=== PATIENT | female | born 2000 | race Caucasian/White ===

== ENCOUNTER 2023-08-20 09:23 | Day surgery (SDC) | payer MEDICAID ==
[2023-08-17 12:07] VITALS: BMI 38.0
--- NOTE | 2023-08-19 19:23 | HP ---
HISTORY AND PHYSICAL CHIEF COMPLAINT: Recurrent tonsillitis. HISTORY OF PRESENT ILLNESS: The patient is a pleasant 23-year-old female, who was recently seen in my office for evaluation of recurrent episodes of acute tonsillitis despite treatment with various types of oral antibiotics. The patient states that she has had at least 4 episodes of streptococcal tonsillitis every year. She is a nonsmoker. At that time the patient was seen in my office, clinical examination of the oropharynx revealed 4+ cryptic tonsils filled with white cheesy debris. It was recommended that the patient undergo a tonsillectomy. PAST MEDICAL HISTORY: Reveals the patient is a nonsmoker. She has no allergies to medication. She is not currently on any medications. Her only previous surgery was extraction of a wisdom tooth. REVIEW OF SYSTEMS: Noncontributory. PHYSICAL EXAMINATION: GENERAL: The patient is a pleasant 23-year-old female, who was alert and cooperative. HEENT: The patient is normocephalic. Tympanic membranes are normal. Middle ear spaces are free of any fluid or infection. Pupils are equal, round, and reactive to light and accommodation. Extraocular movements are within normal limits. Intranasal examination reveals moderate septal deviation with compensatory hypertrophy of the inferior turbinates and a moderate amount of mucus on the mucous membranes and draining down the posterior pharynx. Examination of the oropharynx reveals 4+ cryptic tonsils filled with white cheesy debris. Cranial nerves 2 through 12 and remainder of the head and neck exam are within normal limits. CHEST/CARDIOVASCULAR: Both lung kirk are clear to percussion and auscultation. The patient is in regular sinus rhythm. S1 and S2 are present without any murmurs. ABDOMEN: No evidence any masses, megaly, or tenderness. The abdomen is soft. SKIN: Unremarkable. MUSCULOSKELETAL/NEUROLOGICAL: All within normal limits. PELVIC/RECTAL: This exam is deferred because the patient has done this at her family physician's office. Remainder of physical exam is unremarkable. ASSESSMENT: Chronic tonsillitis. PLAN: The patient is scheduled to undergo a tonsillectomy under general anesthesia in a.m. Attention, RNs in the pre-surgical area; I have ordered for this patient to receive 1000 mg of Ofirmev IV to be given once an intravenous line has been established. In addition to this, I have ordered for her to receive 2 million units of aqueous penicillin G IV once an IV line has been established. If the pharmacy department sends a different pre-surgical prophylactic antibiotics to the pre-surgical area for this patient, please cancel that order and return it to the pharmacy department. Please make sure that the patient's account is credited appropriately. I have discussed the risks, benefits and alternative therapies for the above-mentioned procedure and for both sedation/analgesia as well as necessary blood product administration, if indicated, as they pertain to this patient. The patient has indicated her understanding and acceptance of the risks and procedures discussed. MMODL / IJN: [id number] /
[~2023-08-20 09:23] MED LIST: ACETAMINOPHEN IV (For NPO) 1,000 MG in EMPTY BAG 1 BAG IVPB PRN; Pre Op ABX Message 1 EACH MISC MISCELLANE ONE
[2023-08-20] MEDS: LACTATED RINGERS 1,000 ML IV ONE ×2 (09:57→13:19)
[2023-08-20] MEDS: DEXAMETHASONE SOD PHOSPHATE 4 MG/ML 1 ML VIAL IVP ONE (10:25)
[2023-08-20] MEDS: ONDANSETRON 4 MG/2 ML VIAL IVP PRN (10:25)
[2023-08-20] MEDS: ACETAMINOPHEN IV (For NPO) 1,000 MG/100 ML VIAL IVPB ONE (10:26)
[2023-08-20] MEDS ORDERED: LACTATED RINGERS 1,000 ML IV SCH ×3 (11:30→11:41)
[2023-08-20] MEDS: BUPIVACAINE (PF) 0.5% 30 ML VIAL SQ ONE ×2 (11:37)
[2023-08-20] MEDS ORDERED: DEXAMETHASONE SOD PHOSPHATE 10 MG/ML 1 ML VIAL ONE (11:39)
[2023-08-20] MEDS: PENICILLIN G POTASSIUM 2,000,000 UNIT in DEXTROSE 5% IN WATER 100 ML IVPB PRN (11:39)
[2023-08-20] MEDS ORDERED: LIDOCAINE 1% INJ 10MG/ML (20 ML MDV) ONE (11:39)
[2023-08-20] MEDS ORDERED: fentaNYL (PF) 50 MCG/ML 2 ML AMP ONE (11:39)
[2023-08-20] MEDS ORDERED: MIDAZOLAM 2 MG/2 ML VIAL ONE (11:39)
[2023-08-20] MEDS ORDERED: SUCCINYLCHOLINE CHLORIDE 200 MG/10 ML VIAL IV ONE (11:39)
[2023-08-20] MEDS ORDERED: ROCURONIUM 10 MG/ML (5 ML VIAL) IV ONE (11:39)
[2023-08-20] MEDS ORDERED: GLYCOPYRROLATE 0.2 MG/ML 2 ML VIAL ONE (11:39)
[2023-08-20] MEDS ORDERED: PROPOFOL 10 MG/ML 20 ML VIAL IV ONE (11:39)
[2023-08-20] MEDS ORDERED: NEOSTIGMINE 1 MG/ML 10 ML VIAL ONE (11:39)
[2023-08-20 12:55] VITALS: TEMP 97.2
[2023-08-20] MEDS: HYDROmorphone 0.5 MG/0.5 ML SYRINGE IVP PRN (13:19)
[2023-08-20 14:13] VITALS: RESP 16
[2023-08-20] MEDS: oxyCODONE-APAP 10-325MG 1 EACH TAB PO PRN (14:24)
[2023-08-20] MEDS: ONDANSETRON 4 MG/2 ML VIAL IVP ONE (14:53)
[2023-08-20 15:34] VITALS: BP 120/82; PULSE 86
--- NOTE | 2023-08-20 20:00 | OP ---
OPERATIVE REPORT DATE OF SERVICE : 08/20/2023 PREOPERATIVE DIAGNOSIS: Chronic tonsillitis. POSTOPERATIVE DIAGNOSIS: Chronic tonsillitis. ANESTHESIA: General. PROCEDURE: Tonsillectomy. COMPLICATIONS: None. ESTIMATED BLOOD LOSS: Less than 50 mL. OPERATIVE PROCEDURE: The patient was placed on the Operating Table in the supine position, after uneventful induction and endotracheal intubation, satisfactory general anesthesia was obtained. Next, the #3 Steffi-Boston mouth gag was introduced into the oropharynx, expanded and suspended from a Thorpe Stand. Following this, both peritonsillar areas were injected with the tonsillar forceps and pulled medially. The sickle knife was used to make an incision 4 mm lateral to the anterior pillar, beginning at the superior pole and working down to the inferior pole with a similar incision being carried out parallel to the posterior pillar. The angle scissors and the serrated Bella dissector were used to dissect the tonsil away from the tonsillar fossa. The tonsil itself was excised en toto using the tonsillar snare. Hemostasis was obtained using suction cautery. A sponge was placed in the empty tonsillar fossa. Attention was then directed to the left tonsil where the same procedure was carried out, with the left tonsil being grasped with the tonsillar forceps and pulled medially. The sickle knife was used to make an incision 4 mm lateral to the anterior pillar beginning at the superior pole and working down to the inferior pole with a similar incision being carried out parallel to the posterior pillar. Once again, the angle scissors and the serrated Bella dissector were used to dissect the tonsil away from the tonsillar fossa and the tonsil itself was excised en toto using the tonsillar snare. Hemostasis was obtained using suction cautery. A sponge was placed in the empty tonsillar fossa. The mouth gag was relaxed for a period of approximately seven minutes and upon re-expanding and removing all sponges, no evidence of any active bleeding was noted. At this point, the procedure was terminated. There were no intraoperative complications. The patient tolerated the procedure well and was returned to the Recovery Room in satisfactory condition. MMODL / IJN: [id number] /
== END 2023-08-20 15:40 | disposition home or self-care (01) ==
LOC: OR 09:23
PROVIDERS: ATTEND Otolaryngology
DX: J03.90 Acute tonsillitis, unspecified (principal); J34.2 Deviated nasal septum; J34.3 Hypertrophy of nasal turbinates; Z79.3 Long term (current) use of hormonal contraceptives
CPT/HCPCS: 81025; 88304; 42826; J2250; J0330; J1100 ×2; J2710; J2405; J2001; J3010; J0131; J2704; J1170; J2540; J0665

== ENCOUNTER → 2023-10-18 | Outpatient (CLI) | payer MEDICAID ==
--- NOTE | 2023-10-18 08:39 | USB ---
Reason for Exam: Clinical finding. Technique: Method: Targeted. Findings: The area of palpable concern of the left breast, the axilla of the left breast and the retroareolar of the left breast were scanned. Targeted ultrasound at the palpable site 3:00 left breast 13 cm from the nipple including scanning of the subareolar region and axilla. No solid or cystic lesion or axillary lymphadenopathy. Overall Assessment: Benign, BI-RAD 2 Management: Screening Mammogram of both breasts at age 41. Unless there is an indication to start sooner. Further clinical management of any suspicious palpable areas. If any enlarging palpable area is detected, the patient can be rescanned. Patient should continue monthly self breast exams. Results were given to the patient verbally at the time of exam. Electronically signed and approved by: Angelica Kelly M.D. Radiologist
== END | disposition home or self-care (01) ==
LOC: RADUSWWP 08:00
PROVIDERS: ATTEND Obstetrics & Gynecology Obstetrics
DX: N63.20 Unspecified lump in the left breast, unspecified quadrant (principal)